=== PATIENT | male | born 1945 | race Caucasian/White ===

== ENCOUNTER 2016-06-09 13:04 | Inpatient (IN) | payer OTHER ==
[2016-06-05 13:38] LABS: BASOPHILS 0.4 %; BASOPHILS ABSOLUTE 0.03 10/3/uL (0.0-0.16); EOSINOPHILS 2.9 %; EOSINOPHILS ABSOLUTE 0.22 10/3/uL (0.0-0.53); HEMATOCRIT 36.5 % (40.0-51.0); HEMOGLOBIN 12.2 g/dL (13.6-17.8); IMMATURE GRANULOCYTES 0.3 %; IMMATURE GRANULOCYTES ABSOLUTE 0.02 10/3/uL (0.0-0.11); LYMPHOCYTES 35.2 %; LYMPHOCYTES ABSOLUTE 2.69 10/3/uL (0.67-4.30); MANUAL DIFF NO %; MEAN CORPUS HGB CONC 33.4 g/dL (32.0-36.0); MEAN CORPUSCULAR HEMOGLOB 28.2 pg (26.0-34.0); MEAN CORPUSCULAR VOLUME 84.3 fL (80-100); MONOCYTES 5.9 %; MONOCYTES ABSOLUTE 0.45 10/3/uL (0.21-1.20); NEUTROPHILS 55.3 %; NEUTROPHILS ABSOLUTE 4.23 10/3/uL (2.02-8.40); PLATELET COUNT 126 10/3/uL (150-400); RBC DISTRIBUTION WIDTH 14.8 % (12.0-16.0); RED CELL COUNT 4.33 10/6/uL (4.7-6.1); WHITE BLOOD CELLS 7.6 10/3/uL (4.5-10.5)
[2016-06-05 13:42] LABS: INTERNATIONAL NORMAL RATI 1.1 UNITS (-); PROTIME (NOT ORD) 13.8 SEC (12.0-14.5)
[2016-06-05 13:43] LABS: ASCORBIC ACID (UR NOT ORDER) NEG (NEG); BILIRUBIN, URINE NEGATIVE (NEG); KETONE, URINE NEGATIVE (NEG); LEUKOCYTE ESTERASE(NOT OR NEG (NEG); PARTIAL THROMBO TIME 28.9 SEC (22.5-37.2); WBC (NOT ORDERED) (RFLEX) 1 (0-5)
[2016-06-05 13:55] LABS: A/G RATIO 1.1 (0.7-1.9); ALBUMIN 3.9 G/DL (3.5-5.0); ALKALINE PHOSPHATASE 104 U/L (45-117); CALCIUM, SERUM 8.7 MG/DL (8.5-10.4); CHLORIDE, SERUM 108 MMOL/L (96-112); CO2 (CARBON DIOXIDE) 26 MMOL/L (24-34); CREATININE 1.57 MG/DL (0.70-1.30); GFR AFRICAN AMERICAN 50 ML/MIN (>=60); GFR NON AFRICAN AMERICAN 43 ML/MIN (>=60); GLOBULIN 3.7 G/DL (2.5-4.1); GLUCOSE, SERUM 86 MG/DL (60-99); POTASSIUM, SERUM 4.1 MMOL/L (3.5-5.3); SGOT(AST) 18 U/L (5-40); SGPT(ALT) 31 U/L (5-65); SODIUM, SERUM 142 MMOL/L (135-148); TOTAL BILIRUBIN 0.3 MG/DL (0-1.2); TOTAL PROTEIN 7.6 G/DL (6.0-8.5)
[2016-06-05 13:56] LABS: BUN (BLOOD UREA NITROGEN) 20 MG/DL (6-23)
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
--- NOTE | ~2016-06-09 | OP ---
Record Of Operation [facility] [address] [place]. [address] NAME: ELIAS PINEDA : 43 STATUS : ADM IN [facility]#: [id number] AGE: 71 ADM/REG DATE : 06/09/16 MR#: [id number] REPORT SERV DATE: 06/10/16 DICTATED BY: CHACORTA LOVE DATE: 06/09/16 REPORT STATUS : Draft TRANSCRIBED BY: MODL DATE: 06/09/16 DATE OF PROCEDURE: 06/09/2016 PREOPERATIVE DIAGNOSIS: Left hip osteoarthritis. POSTOPERATIVE DIAGNOSIS: Left hip osteoarthritis. PROCEDURE: Left total hip arthroplasty. SURGEON: Chacorta Love M.D. GYROSCOPE REPAIRER: Jose Lucero. ANESTHESIA: General anesthetic. ESTIMATED BLOOD LOSS: 300 mL. FLUID: 2000 mL of crystalloid. TOURNIQUET TIME: Zero. DRAINS: None. COMPLICATIONS: None. INDICATION: A 71-year-old patient presented in the office with longstanding left hip pain with radiographs indicating degenerative disease. He opted for operative treatment having understood the possible risks and complications discussed in the office. He was identified in the preop holding area. His operative site was marked with a Yes. The patient was then taken to the operative suite, placed in supine position on operative table. General anesthetic was successfully administered. The patient's left lower extremity was then prepped and draped to expose the leg circumferentially. The right lower extremity was also prepped and draped to the groin. A time-out was called. He was identified, correct operative extremity identified, verification of antibiotic Ancef administration. Vancomycin 1.5 g also administered. The patient had a longitudinal incision placed 3 cm lateral to the anterior superior iliac spine through skin and subcutaneous tissue. Hemostasis was achieved with electrocautery. Tensor fascia was identified and sharply incised at the posterior border and carried anteriorly. Dissection was then carried out of the hip joint capsule with hand-held cobra retractors. Dissection was then carried over the anterior capsule, and a sharp tip retractor was then placed over the acetabulum. A capsulectomy was then performed. Oscillating saw was then used to perform a femoral neck cut. A napkin ring bone was removed, and then femoral head was removed. It was noted to be severely diseased. Labrum was then cleared from the acetabulum using sharp dissection and Bovie electrocautery. Sequential reamers then used, starting with a 48 reamer up to a 53 reamer; 53 trial was then placed. Fluoroscopy was used to ensure adequate position of the cup, was deemed appropriate. A 54 metal-backed solid cup was then called for, titanium hemispherical size Record Of Operation [facility] [address] [place]. [address] NAME: ELIAS PINEDA : 43 STATUS : ADM IN PAT#: [id number] AGE: 71 ADM/REG DATE : 06/09/16 MR#: [id number] REPORT SERV DATE: 06/10/16 DICTATED BY: CHACORTA LOVE DATE: 06/09/16 REPORT STATUS : Draft TRANSCRIBED BY: MODL DATE: 06/09/16 54 alpha code E, Mercedes. This was tapped into place. A bone plug was then placed, and then a Trident X3, 0-degree polyethylene insert, 36 mm inside diameter, Alpha code was also placed. Attention was then turned to the femur which was brought up into the incision by abduction, external rotation, and release of the capsule. Superior posterior neck as well as the piriformis. Double prong retractors placed over the greater trochanter and a Flores retractor in the posterior neck. A cookie cutter osteotome was then used to enter the femoral canal, a sucker tip and sequential broaches up to a #4 broach. Intraoperative fluoroscopy was used, and the position of the femur was deemed adequate, slightly undersized. The 4 broach smoothened and the #5 broach was placed. Trialing was then performed of the 5 broach with a -2.5 head. The fit and fill of the femur was deemed appropriate. Leg lengths were slightly shortened, 0 head was then trialed and felt to be appropriate. This was stable in external rotation with excellent range of motion otherwise. Hip was then re-dislocated, and the final components were called for, an Accolade II 127- degree neck angle hip stem, size #5. This was tapped into place. Again, trial was performed with a 0 neck length, felt to be appropriate with minimal shock, stable external rotation, and then fluoroscopy was used to ensure adequacy of length as well as measuring up to the leg. Hip was then re-dislocated, and the final ball component was called for, a Biolox delta ceramic V40 femoral head, outside diameter 36 mm, neck length 0 mm. Hip was then relocated. No soft tissue was noted to be entrapped. Hip was then irrigated with copious amounts of saline, and then closure was performed using multiple layers. Vancomycin powder was placed in the hip joint. Tensor fascia approximated using #1 Vicryl suture, deep tissues with #1 Vicryl interrupted suture, subcutaneous tissues with 2-0 Vicryl suture, and the skin with a running 3-0 STRATAFIX suture. Steri-Strips were then placed. Mepilex dressing was placed. The patient was awakened, extubated, [facility], taken to the postanesthesia care unit in satisfactory condition having tolerated the procedure well. Sponge and needle counts were correct at the conclusion of the procedure. JORGE/HERNANDO Chacorta Love M.D. / [id number]
[~2016-06-09 13:04] MED LIST: ASAB PO; GLUCOTROL5 PO; HYT5 PO; NITROQUICK0.4 MG SL; PRIN10 PO; PROAIR HFA INH; SPIRIVA INH; T PO; VITAMIN D1000 UNI1 PO; Z300 PO; ZOCOR80 MG PO; ZOL100 PO
[2016-06-10 05:18] LABS: BASOPHILS 0.2 %; BASOPHILS ABSOLUTE 0.02 10/3/uL (0.0-0.16); EOSINOPHILS 0.3 %; EOSINOPHILS ABSOLUTE 0.03 10/3/uL (0.0-0.53); IMMATURE GRANULOCYTES 0.2 %; IMMATURE GRANULOCYTES ABSOLUTE 0.02 10/3/uL (0.0-0.11); LYMPHOCYTES 13.6 %; LYMPHOCYTES ABSOLUTE 1.28 10/3/uL (0.67-4.30); MEAN CORPUSCULAR HEMOGLOB 27.6 pg (26.0-34.0); MEAN CORPUSCULAR VOLUME 86.1 fL (80-100); MEAN PLATELET VOLUME 10.1 fL (9.2-13.0); MONOCYTES 9.1 %; MONOCYTES ABSOLUTE 0.85 10/3/uL (0.21-1.20); NEUTROPHILS 76.6 %; NEUTROPHILS ABSOLUTE 7.19 10/3/uL (2.02-8.40); PLATELET COUNT 132 10/3/uL (150-400); RBC DISTRIBUTION WIDTH 15.2 % (12.0-16.0); RED CELL COUNT 3.52 10/6/uL (4.7-6.1); WHITE BLOOD CELLS 9.4 10/3/uL (4.5-10.5)
[2016-06-10 05:24] LABS: HEMATOCRIT 30.3 % (40.0-51.0); HEMOGLOBIN 9.7 g/dL (13.6-17.8); MANUAL DIFF NO %
[2016-06-10 05:35] LABS: A/G RATIO 0.9 (0.7-1.9); ALKALINE PHOSPHATASE 76 U/L (45-117); BUN (BLOOD UREA NITROGEN) 20 MG/DL (6-23); CALCIUM, SERUM 7.6 MG/DL (8.5-10.4); CHLORIDE, SERUM 107 MMOL/L (96-112); CO2 (CARBON DIOXIDE) 29 MMOL/L (24-34); CREATININE 1.56 MG/DL (0.70-1.30); GFR AFRICAN AMERICAN 51 ML/MIN (>=60); GFR NON AFRICAN AMERICAN 44 ML/MIN (>=60); GLOBULIN 3.3 G/DL (2.5-4.1); GLUCOSE, SERUM 132 MG/DL (60-99); POTASSIUM, SERUM 4.7 MMOL/L (3.5-5.3); SGOT(AST) 29 U/L (5-40); SGPT(ALT) 31 U/L (5-65); SODIUM, SERUM 140 MMOL/L (135-148); TOTAL BILIRUBIN 0.4 MG/DL (0-1.2); TOTAL PROTEIN 6.3 G/DL (6.0-8.5)
[2016-06-11 05:20] LABS: HEMOGLOBIN 8.3 g/dL (13.6-17.8)
[2016-06-11 05:24] LABS: HEMATOCRIT 25.2 % (40.0-51.0)
[2016-06-11] MEDS ORDERED: NORCO1 TA2 PO (14:49)
[2016-08-28] MEDS ORDERED: ASAB PO (13:53)
[2016-08-28] MEDS ORDERED: VITAMIN D3 PO (13:54)
[2016-08-28] MEDS ORDERED: T PO (14:49)
[2016-08-28] MEDS ORDERED: PROVHFA INH (14:50)
[2016-08-28] MEDS ORDERED: Z100 PO (14:50)
[2016-08-28] MEDS ORDERED: LAC-HYDRIN TOP (14:51)
[2016-08-28] MEDS ORDERED: VITAMIN D31000 UNIT PO (14:51)
[2016-08-28] MEDS ORDERED: GLUCOTROL5 PO (14:51)
[2016-08-28] MEDS ORDERED: PROTONIX PO (14:52)
[2016-08-28] MEDS ORDERED: PRIN5 PO (14:52)
[2016-08-28] MEDS ORDERED: NITROSTAT0.4 MG PO (14:52)
[2016-08-28] MEDS ORDERED: ZOL100 PO (14:53)
[2016-08-28] MEDS ORDERED: ZOCOR80 MG PO (14:53)
[2016-08-28] MEDS ORDERED: HYT5 PO (14:53)
[2016-08-28] MEDS ORDERED: SPIRIVA INH (14:53)
[2016-08-28] MEDS ORDERED: MULTIVIT/MIN PO (14:55)
[2016-08-29] MEDS ORDERED: ELIQUIS 5 MG TAB5 MG PO (16:09)
== END 2016-06-11 15:35 | disposition home or self-care (01) | DRG 470 ==
LOC: SDC/OF 13:04 → 3SO 21:17
PROVIDERS: Nurse Practitioner Family; Orthopaedic Surgery
PROC: 0SRB02Z Replacement of Left Hip Joint with Metal on Polyethylene Synthetic Substitute, Open Approach (ICD-10-PCS; principal; 2016-06-10)
DX: M16.12 Unilateral primary osteoarthritis, left hip (principal); E11.22 Type 2 diabetes mellitus with diabetic chronic kidney disease; J44.9 Chronic obstructive pulmonary disease, unspecified; I12.9 Hypertensive chronic kidney disease with stage 1 through stage 4 chronic kidney disease, or unspecified chronic kidney disease; N18.3 Chronic kidney disease, stage 3 (moderate); E78.5 Hyperlipidemia, unspecified
CPT/HCPCS: 36415; 80053; 81001; 82962; 83036; 85014; 85018; 85025; 85610; 85730; 86850; 86900; 86901; 88304; 88311; 97110-GP; 97116-GP; 97162-GP; 97166-GO; 97535-GO; A9270-GY; C1776; G8978-CK-GP; G8979-CJ-GP; G8987-CK-GO; G8988-CK-GO; G8989-CK-GO; J0330; J0690; J2250; J2270; J2274; J2405; J2710; J3010; J3370